=== PATIENT | female | born 1990 | race Caucasian/White ===

== ENCOUNTER 2018-06-01 09:48 | Outpatient (CLI) | payer MEDICAID ==
[2018-06-01 10:08] VITALS: BP 136/79; PULSE 95; RESP 16; TEMP 97.6
[2018-06-01 10:16] LABS: Basophils % (A) 0 %; Eosinophils # (A) 0.1 k/uL (0-0.7); Eosinophils % (A) 1 %; HCT 33.5 % (34.0-46.0); Lymphocytes # (A) 2.1 k/uL (1.0-4.8); Lymphocytes % (A) 23 %; MCH 28.9 pg (25.0-35.0); MCHC 32.9 g/dL (31.0-37.0); Mean Platelet Volume 7.4; Monocytes # (A) 0.5 k/uL (0-1.0); Monocytes % (A) 6 %; Neutrophils # (A) 6.4 k/uL (1.3-7.7); Neutrophils % (A) 69 %; Platelet Count 331 k/uL (150-450); RBC 3.81 m/uL (3.80-5.40); RDW 13.1 % (11.5-15.5); WBC 9.3 k/uL (3.8-10.6)
[2018-06-01 10:25] LABS: ALT 24 U/L (9-52); AST 16 U/L (14-36); Blood Urea Nitrogen 7 mg/dL (7-17); LDH 514 U/L (313-618); Uric Acid 3.5 mg/dL (3.7-7.4)
[2018-06-01 11:16] LABS: Appearance,Urine Cloudy (Clear); Bacteria,Urine Moderate /hpf; Bilirubin,Urine Negative (Negative); Blood,Urine Negative (Negative); Color,Urine Light Yellow; Glucose,Urine (UA) Negative (Negative); Ketones,Urine Negative (Negative); Leukocyte Esterase,Urine Large (Negative); Mucus,Urine Rare /hpf; Nitrite,Urine Negative (Negative); PH, Urine 5.5 (5.0-8.0); Protein,Urine Negative (Negative); RBC,Urine 6 /hpf (0-5); Specific Gravity,Urine 1.007 (1.001-1.035); Squamous Epithelial Cell,Urine 3 /hpf (0-4); Urobilinogen,Urine <2.0 mg/dL (<2.0); WBC,Urine 24 /hpf (0-5)
--- NOTE | 2018-06-01 14:27 | P.MSEPDOC ---
Presenting Problems - Arrival Data Date of Arrival on Unit: 06/01/18 Time of Arrival on Unit: 09:46 Mode of Transport: Ambulatory - Complaint OB-Reason for Admission/Chief Complaint: PIH Medical History - Information : 2 Para: 4 - Gestational Age Gestational Age by HUNTER (wks/days): 34 Weeks and 2 Days Review of Systems - Review of Systems Constitutional: No problems Breast: No problems ENT: No problems Cardiovascular: No problems Respiratory: No problems Gastrointestinal: No problems Genitourinary: No problems Musculoskeletal: No problems Neurological: No problems Skin: No problems Vital Signs - Temperature Temperature: 97.6 F Temperature Source: Temporal Artery Scan - Pulse Right Sitting Brachial Pulse Rate: 95 Pulse Assessment Method: Automatic Cuff - Respirations Respiratory Rate: 16 Oxygen Delivery Method: Room Air O2 Sat by Pulse Oximetry: 100 - Blood Pressure Right Arm Sitting Blood Pressure: 136/79 Blood Pressure Mean: 98 Blood Pressure Source: Automatic Cuff Medical Screen Scoring (Pre) - Cervical Exam Dilation: Exam Deferred Effacement: Exam Deferred Membranes: Intact - Uterine Contractions Frequency: N/A Duration: N/A Intensity: N/A - Maternal Vital Signs Maternal Temperature: N/A Maternal Blood Pressure: N/A Signs of Preeclampsia: Headache = 1 Maternal Respirations: N/A - Pain Assessment Pain Scale Used: Numeric (1 - 10) Pain Intensity: 0 - Maternal Trauma Maternal Trauma: N/A - Assessment Baseline FHR: 140 Heart Rate - NICHD Category: Category I (Normal) = 0 NST: Reactive Position: N/A, Non-vertex & not laboring = 3 Station: N/A - Total Score Total Score (Pre): 4 - Level of Risk Level of Risk: Low (0-5) Physician Notification (Pre) - Physician Notified Physician Notified Date: 06/01/18 Physician Notified Time: 11:30 Physician/Practitioner Notifed:: Dr sauceda Spoke With: Dr Sauceda New Order Received: Yes (d/c pt home at this time) - Notification Comment Comment: orders sent with patient Disposition - Disposition OB Disposition: Discharge to home Discharge Date: 06/01/18 Discharge Time: 11:40 I agree with the RN Medical Screening Exam: Yes Risk & Benefit of care provided described in d/c instruction: Yes Diagnosis: GESTATIONAL HTN W/O SIGNIFICANT PROTEINURIA, THIRD TRIMESTER
== END 2018-06-01 11:40 | disposition home or self-care (01) ==
LOC: FBPOP 09:48
PROVIDERS: ATTEND Obstetrics & Gynecology
DX: O13.3 Gestational [pregnancy-induced] hypertension without significant proteinuria, third trimester (principal); Z3A.34 34 weeks gestation of pregnancy
CPT/HCPCS: 59025; 81001; 82565; 82570; 83615; 84156; 84450; 84460; 84520; 84550; 85025; 99215

== ENCOUNTER 2018-06-02 21:40 | Outpatient (CLI) | payer BC, OTHER ==
[2018-06-02 22:42] LABS: Appearance,Urine Clear (Clear); Bilirubin,Urine Negative (Negative); Blood,Urine Negative (Negative); Color,Urine Light Yellow; Glucose,Urine (UA) Negative (Negative); Ketones,Urine Negative (Negative); Leukocyte Esterase,Urine Negative (Negative); Nitrite,Urine Negative (Negative); Protein,Urine Negative (Negative); Specific Gravity,Urine 1.004 (1.001-1.035); Urobilinogen,Urine <2.0 mg/dL (<2.0)
[2018-06-02 22:44] VITALS: PULSE 95; RESP 16; TEMP 97.4
[2018-06-02 23:42] VITALS: BP 130/70
--- NOTE | 2018-06-22 08:37 | P.MSEPDOC ---
Presenting Problems - Arrival Data Date of Arrival on Unit: 06/02/18 Time of Arrival on Unit: 21:40 Mode of Transport: Ambulatory - Complaint OB-Reason for Admission/Chief Complaint: Possible Onset of Labor Comment: 3-5 min since 1800 Medical History - Information : 1 Para: 0 Term: 0 : 0 Abortions: Spontaneous or Elective: 0 Number of Living Children: 0 - Gestational Age Gestational Age by HUNTER (wks/days): 34 Weeks and 3 Days Review of Systems - Review of Systems Constitutional: No problems Breast: No problems ENT: No problems Cardiovascular: No problems Respiratory: No problems Gastrointestinal: No problems Genitourinary: No problems Musculoskeletal: No problems Neurological: No problems Skin: No problems Vital Signs - Temperature Temperature: 97.4 F Temperature Source: Temporal Artery Scan - Pulse Right Brachial Pulse Rate: 95 Pulse Assessment Method: Automatic Cuff - Respirations Respiratory Rate: 16 Oxygen Delivery Method: Room Air O2 Sat by Pulse Oximetry: 98 - Blood Pressure Right Arm Blood Pressure: 130/70 Blood Pressure Mean: 90 Blood Pressure Source: Automatic Cuff Medical Screen Scoring (Pre) - Cervical Exam Dilation: 1-3 cm = 1 Membranes: Intact - Uterine Contractions Frequency: < 36 weeks = 6 Duration: > 40 seconds = 2 Intensity: N/A - Maternal Vital Signs Maternal Temperature: N/A Maternal Blood Pressure: N/A Signs of Preeclampsia: N/A Maternal Respirations: N/A - Maternal Trauma Maternal Trauma: N/A - Assessment Baseline FHR: 130 Heart Rate - NICHD Category: Category I (Normal) = 0 NST: Reactive Position: N/A Station: N/A - Total Score Total Score (Pre): 9 - Level of Risk Level of Risk: Medium (6-9) Physician Notification (Pre) - Physician Notified Physician Notified Date: 06/02/18 Physician Notified Time: 22:25 Spoke With: George Mcguire Order Received: Yes (ffn, ua recheck cervix) Medical Screen Scoring (Post) - Cervical Exam Dilation: 1-3 cm = 1 - Uterine Contractions Frequency: < 36 weeks = 6 Duration: > 40 seconds = 2 Intensity: N/A - Maternal Vital Signs Maternal Temperature: N/A Maternal Blood Pressure: N/A Signs of Preeclampsia: N/A Maternal Respirations: N/A - Assessment Heart Rate - NICHD Category: Category I (Normal) = 0 - Total Score Total Score (Post): 9 - Post Treatment Level of Risk Post Treatment Level of Risk: Medium (6-9) Physician Notification (Post) - Notification Comment Comment: pt continues to deny s/s of preeclampsia. 130 /70 mmHg. Dilatation: 1 cm /Effacement: Thick. (text) /Station: Ballottable (text) Disposition - Disposition OB Disposition: Discharge to home, Written follow up instructions reviewed Discharge Date: 06/02/18 Discharge Time: 11:35 I agree with the RN Medical Screening Exam: Yes Risk & Benefit of care provided described in d/c instruction: Yes Diagnosis: FALSE LABOR AT OR AFTER 37 COMPLETED WEEKS OF GESTATION
== END 2018-06-02 23:35 | disposition home or self-care (01) ==
LOC: FBPOP 21:40
PROVIDERS: ATTEND Obstetrics & Gynecology
DX: O47.1 False labor at or after 37 completed weeks of gestation (principal); Z3A.34 34 weeks gestation of pregnancy
CPT/HCPCS: 59025; 81003; 82731; 99213

== ENCOUNTER 2018-06-14 16:47 | Observation (INO) | payer BC, OTHER ==
[2018-06-14] MEDS ORDERED: ACETAMINOPHEN TAB 325 MG TAB PO PRN (17:50)
[2018-06-14 17:51] LABS: Basophils % (A) 0 %; Eosinophils # (A) 0.1 k/uL (0-0.7); Eosinophils % (A) 1 %; HCT 33.9 % (34.0-46.0); HGB 11.2 gm/dL (11.4-16.0); Lymphocytes # (A) 1.8 k/uL (1.0-4.8); Lymphocytes % (A) 21 %; MCH 28.6 pg (25.0-35.0); MCHC 32.9 g/dL (31.0-37.0); Mean Platelet Volume 7.8; Monocytes # (A) 0.4 k/uL (0-1.0); Monocytes % (A) 5 %; Neutrophils % (A) 72 %; Platelet Count 330 k/uL (150-450); RDW 13.7 % (11.5-15.5); WBC 8.3 k/uL (3.8-10.6)
--- NOTE | 2018-06-14 18:00 | P.HPOB ---
History of Present Illness H&P Date: 06/14/18 Chief Complaint: Headache and This patient is a pleasant 28-year-old 1 para 0 female estimated date of confinement 07/11/2018 estimated gestational age 36 weeks and 1 day who presents to labor and delivery with complaints of a headache. Patient's care is per Dr. Sauceda. Patient did have an echogenic focus on a ultrasound was seen by maternal medicine. This was felt to be isolated however the patient did decline genetic screening. care is significant for some headaches that she had right after Rajesh at that time had elevated blood pressures 120s to 130s over 90s. Patient was sent to labor and delivery and had a preeclampsia evaluation which was negative. Patient's most recent visit which is approximately 5 days ago she was 126/86 and stated her headaches had improved. Patient's blood pressure on admission here is 147/ 84 and 147/87. Patient denies other symptomatology at this time. Repeat blood pressures here however did show elevated to 167/89. Patient denies a history of hypertension. is a product of assisted reproduction. Review of Systems Constitutional: Reports as per HPI Genitourinary: Reports Menstruation: Reports amenorrhea Past Medical History Past Medical History: No Reported History History of Any Multi-Drug Resistant Organisms: None Reported Past Surgical History: Cholecystectomy, Tonsillectomy Past Anesthesia/Blood Transfusion Reactions: No Reported Reaction Past Psychological History: No Psychological Hx Reported Smoking Status: Never smoker Past Alcohol Use History: None Reported Past Drug Use History: None Reported Medications and Allergies Home Medications Medication Instructions Recorded Confirmed Type Pnv No.95/Ferrous Fum/Folic AC 1 tab PO DAILY 06/14/18 06/14/18 History [ Multivitamin Tablet] Allergies Allergy/AdvReac Type Severity Reaction Status Date / Time No Known Allergies Allergy Verified 06/14/18 16:56 Exam Intake and Output 06/14/18 06/14/18 06/14/18 06:59 14:59 22:59 Other: Weight 103.873 kg - OBG Physical Exam Cervix: Cervix in the office per Dr. Sauceda was 1 cm dilated Results blood work shows she is a positive, rubella immune, RPR nonreactive, hepatitis B is negative, HIV is nonreactive, group B strep was negative Assessment and Plan Assessment: This is a pleasant 28-year-old 1 para 0 female 36 and one sevenths weeks gestation who is admitted to labor and delivery for observation secondary to gestational hypertension. Patient is having a headache and has had a couple elevated blood pressures and therefore I feel is best to admit her for observation. I'm going to check preeclampsia labs, do continuous monitoring, beginning at 24 urine, and I ordered a complete ultrasound for tomorrow morning. Consider treatment if blood pressures greater than 160/100 persistently. Consider delivery at 37 weeks or earlier if evidence of preeclampsia. (1) 36 weeks gestation of Current Visit: Yes Status: Acute Code(s): Z3A.36 - 36 WEEKS GESTATION OF SNOMED Code(s): 02155687 (2) Gestational hypertension Current Visit: Yes Status: Acute Code(s): O13.9 - GESTATIONAL HTN W/O SIGNIFICANT PROTEINURIA, UNSP TRIMESTER SNOMED Code(s): 066857231
[2018-06-14 18:20] LABS: ALT 18 U/L (9-52); AST 20 U/L (14-36); Blood Urea Nitrogen 5 mg/dL (7-17); LDH 585 U/L (313-618); Uric Acid 4.9 mg/dL (3.7-7.4)
[2018-06-14 18:34] LABS: Appearance,Urine Clear (Clear); Bilirubin,Urine Negative (Negative); Blood,Urine Negative (Negative); Color,Urine Yellow; Glucose,Urine (UA) Negative (Negative); Ketones,Urine 1+ (Negative); Leukocyte Esterase,Urine Negative (Negative); Mucus,Urine Many /hpf; Nitrite,Urine Negative (Negative); PH, Urine 5.5 (5.0-8.0); Protein,Urine 1+ (Negative); RBC,Urine 1 /hpf (0-5); Specific Gravity,Urine 1.015 (1.001-1.035); Squamous Epithelial Cell,Urine 1 /hpf (0-4); Urobilinogen,Urine <2.0 mg/dL (<2.0); WBC,Urine 3 /hpf (0-5)
[2018-06-14 18:36] VITALS: BMI 40.2
[2018-06-14 18:57] LABS: Creatinine,Urine Random 196.1 mg/dL
[2018-06-15] MEDS ORDERED: ACETAMINOPHEN TAB 325 MG TAB ONE (02:45)
--- NOTE | 2018-06-15 08:00 | P.MSEPDOC ---
Presenting Problems - Arrival Data Date of Arrival on Unit: 06/14/18 Time of Arrival on Unit: 16:47 Mode of Transport: Ambulatory - Complaint OB-Reason for Admission/Chief Complaint: Headache Comment: headache and elevated bp's Medical History - Information : 1 Para: 0 Term: 0 : 0 Abortions: Spontaneous or Elective: 0 Number of Living Children: 0 - Gestational Age Gestational Age by HUNTER (wks/days): 35 Weeks and 6 Days Medical Screen Scoring (Pre) - Maternal Vital Signs Maternal Blood Pressure: Systolic >139 = 2 Signs of Preeclampsia: Headache = 1 Maternal Respirations: N/A - Assessment Baseline FHR: 140 Heart Rate - NICHD Category: Category I (Normal) = 0 NST: Reactive Position: N/A Station: N/A - Total Score Total Score (Pre): 3 - Level of Risk Level of Risk: Low (0-5) Physician Notification (Pre) - Physician Notified Physician Notified Date: 06/14/18 Physician/Practitioner Notifed:: Dr Marcos - Notification Comment Comment: Dr. Marcos was at bedside to assess and see pt, she was admitted for 24 hour obsv for elevated bp's and lab work and 24 hour urine Disposition - Disposition OB Disposition: Observe, LDRP Suite I agree with the RN Medical Screening Exam: Yes Risk & Benefit of care provided described in d/c instruction: Yes Diagnosis: GESTATIONAL HTN W/O SIGNIFICANT PROTEINURIA, THIRD TRIMESTER
[2018-06-15] MEDS ORDERED: ACETAMINOPHEN TAB 500 MG TAB PO PRN (08:29)
--- NOTE | 2018-06-15 08:29 | P.DS ---
Providers Date of admission: 06/14/18 17:38 Expected date of discharge: 06/15/18 Attending physician: Emily Sauceda Primary care physician: Emily Sauceda [place] [facility] Course: This is a 28-year-old female 1 para 0 at 36-2/7 weeks who was admitted by Dr. Marcos last night for elevated blood pressures and headache. Her lab work was normal other than she did have 1+ protein in her urine she also had 1+ ketones. Her headache has less than this morning but is still there. Her blood pressures initially on admission were elevated in the 140s over 80s and she did have an isolated blood pressure to in the 160s but this did come back down to normal. Her blood pressures through the night and this morning are normal. She only has a mild headache this morning. 24 hour urine is in progress. She did have a obstetrical ultrasound today that showed normal growth. She does have an appointment scheduled with me tomorrow morning in the office. I have advised her to move this to Wednesday and then we will discuss induction of labor after 37 weeks. She will be discharged this evening after her 24-hour urine is completed as long as her blood pressures stay within the normal range. She will be given instructions to return if symptoms worsen. Procedures: Obstetrical ultrasound 24 urine collection Patient Condition at Discharge: Stable Plan - Discharge Summary New Discharge Prescriptions: No Action Pnv No.95/Ferrous Fum/Folic AC [ Multivitamin Tablet] 1 tab PO DAILY Discharge Medication List Pnv No.95/Ferrous Fum/Folic AC [ Multivitamin Tablet] 1 tab PO DAILY 01/23 [History] Follow up Appointment(s)/Referral(s): Emily Sauceda DO [Primary Care Provider] - 06/17/18 Activity/Diet/Wound Care/Special Instructions: Modified bedrest. Off work. Discharge Disposition: HOME SELF-CARE
--- NOTE | 2018-06-15 08:52 | US ---
EXAMINATION TYPE: US OB >= 14 wk fetus DATE OF EXAM: 06/15/2018 COMPARISON: None CLINICAL HISTORY: Gestational hypertension TECHNIQUE: Transabdominal (TA) GESTATIONAL AGE / DATING Physician Established: (36 weeks/2 days) EDC: 07/11/2018 Dates by LMP: (36 weeks/2 days) EDC: 07/11/2018 Dates by First Scan: No previous this is first scan Dates by Current Scan: (36 weeks/5 days) EDC: 07/08/2018 SURVEY IUP: Single PLACENTA: Anterior PREVIA: No Previa [place]: 17.8 cm Normal CERVICAL LENGTH (transabdominal: norm > 3.0cm): 3.1 cm BIOMETRY PRESENTATION: Vertex LIE: Longitudinal BPD: 9.0 cm 36 weeks / 4 days HC: 33.2 cm 37 weeks / 6 days AC: 31.7 cm 35 weeks / 5 days FL: 7.3 cm 37 weeks / 2 days ESTIMATED WEIGHT IN GRAMS: 2938 grams ESTIMATED WEIGHT IN LBS/OZ: 6 lbs. 8 oz. WEIGHT PERCENTAGE BASED ON ESTABLISHED DATES: 56.8% HC/AC: 1.05 Normal FL/AC: 22.97 Normal HEART RATE: 136 bpm RHYTHM: Normal Live IUP, measurements consistent with dates. IMPRESSION: Single live intrauterine with a sonographic age of 36 weeks and 5 days and estimated date o f delivery of 07/08/2018, concordant with menstrual age. Amniotic fluid index, cervical length, and fet al heart rate are within normal limits.
== END 2018-06-15 17:44 | disposition home or self-care (01) ==
LOC: FBPOP 16:47 → 4FBP 17:38 → INTOOBSV 17:38
PROVIDERS: ADMIT Obstetrics & Gynecology; ATTEND Obstetrics & Gynecology
DX: O13.3 Gestational [pregnancy-induced] hypertension without significant proteinuria, third trimester (principal); Z3A.36 36 weeks gestation of pregnancy; Z90.49 Acquired absence of other specified parts of digestive tract
CPT/HCPCS: 59025; 99215; 82570; 84156 ×2; 81050; 82565; 83615; 84450; 84460; 84520; 84550; 85025; 81001; 76805; G0378 ×2

== ENCOUNTER 2018-06-21 05:59 | Inpatient (IN) | payer BC, OTHER ==
--- NOTE | 2018-06-20 20:53 | P.HPOB ---
History of Present Illness H&P Date: 06/20/18 Chief Complaint: Gestational hypertension This is a 28-year-old female 1 para 0 with an estimated date of confinement of 07/11/2018, estimated gestational age of 37 and one sevenths weeks, who presents to labor and delivery for induction of labor secondary to gestational hypertension. She was hospitalized last week and labs were obtained. She did not have preeclampsia and her 24 urine level was approximate 400 mg of protein in 24 hours. Her blood pressures were stable on bedrest, however she did have several blood pressures that were above 140 and above 90 more than 4 hours apart. At her last visit in the office on June 17, her blood pressure was 124/90. She did have a headache on the days that she was admitted last week however this has resolved. She denies any blurry vision or epigastric pain. She does complain of irregular contractions. Obstetrical ultrasound performed on June 15 showed an estimated weight of 6 lbs. 8 oz. or 56 percentile and [place] of 17.8. labs: Hepatitis B surface antigen-negative RPR-nonreactive Rubella-immune Blood type-A+ Antibody screen-negative HIV-nonreactive Hemoglobin-13.1 Toxoplasma-negative Random glucose-89 Obstetrical ultrasound-left ventricle EIF was noted on 20 week ultrasound. She was seen by maternal medicine and this was confirmed there, but resolved by 32 weeks. 1 hour Glucola-136, 3 hour Glucola-within normal limits Group B streptococcus-negative Obstetrical history: . Gynecologic history: No history of STDs. Social history: She is to her female partner. 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 Review of Systems Constitutional: Denies chills, Denies fever Eyes: denies blurred vision, denies pain Ears, nose, mouth and throat: Denies headache, Denies sore throat Cardiovascular: Denies chest pain, Denies shortness of breath Respiratory: Denies cough Gastrointestinal: Reports abdominal pain (Irregular contractions) Genitourinary: Reports pelvic pain, Reports Musculoskeletal: Reports low back pain Integumentary: Denies pruritus, Denies rash Neurological: Denies numbness, Denies weakness Past Medical History Past Medical History: No Reported History History of Any Multi-Drug Resistant Organisms: None Reported Past Surgical History: Cholecystectomy, Tonsillectomy Past Anesthesia/Blood Transfusion Reactions: No Reported Reaction Past Psychological History: Anxiety Smoking Status: Never smoker Past Alcohol Use History: None Reported Past Drug Use History: None Reported - Past Family History Mother Family Medical History: Hypertension, Thyroid Disorder Medications and Allergies Home Medications Medication Instructions Recorded Confirmed Type Pnv No.95/Ferrous Fum/Folic AC 1 tab PO DAILY 06/14/18 06/14/18 History [ Multivitamin Tablet] Allergies Allergy/AdvReac Type Severity Reaction Status Date / Time No Known Allergies Allergy Verified 06/14/18 16:56 Exam Osteopathic Statement: *. No significant issues noted on an osteopathic structural exam other than those noted in the History and Physical/Consult. HEENT: Within normal limits Heart: Regular rate and rhythm Lungs: Clear to auscultation bilaterally Abdomen: Cervix: 1-1/2 cm/60%/-2 heart tones: 140s by Doppler Extremities: Negative Homans Assessment and Plan (1) 37 weeks gestation of Status: Acute Code(s): Z3A.37 - 37 WEEKS GESTATION OF SNOMED Code( s): 58177250 (2) Gestational hypertension Status: Acute Code(s): O13.9 - GESTATIONAL HTN W/O SIGNIFICANT PROTEINURIA, UNSP TRIMESTER SNOMED Code(s): 270189009 Plan: Proceed with oxytocin induction of labor. Careful monitoring of blood pressures. Expectant management.
[2018-06-21] MEDS ORDERED: METHYLERGONOVINE 0.2 MG/ML 1 ML AMP IM PRN (06:04)
[2018-06-21] MEDS ORDERED: LIDOCAINE 0.5% (PF) 5 MG/ML (50 ML SDV) SQ PRN (06:04)
[2018-06-21] MEDS ORDERED: OXYTOCIN 10 UNIT/ML 1 ML VIAL IM PRN (06:04)
[2018-06-21] MEDS ORDERED: CARBOPROST TROMETHAMINE 250 MCG/ML 1 ML AMP IM PRN (06:04)
[2018-06-21] MEDS ORDERED: OXYTOCIN 20 UNITS/1000 ML NS 1,000 ML IV SCH ×2 (06:04→19:34)
[2018-06-21] MEDS ORDERED: LIDOCAINE 1% 20 ML VIAL (10MG/ML) FOR IV START INTRADERMA PRN (06:04)
[2018-06-21] MEDS ORDERED: TERBUTALINE 1 MG/ML VIAL SQ PRN (06:04)
[2018-06-21 06:26] VITALS: BMI 42.2
[2018-06-21] MEDS: LACTATED RINGERS 1,000 ML IV SCH ×3 (06:27→18:41)
[2018-06-21 06:29] LABS: Basophils % (A) 0 %; Eosinophils # (A) 0.1 k/uL (0-0.7); Eosinophils % (A) 1 %; HCT 32.5 % (34.0-46.0); HGB 10.7 gm/dL (11.4-16.0); Lymphocytes # (A) 2.8 k/uL (1.0-4.8); Lymphocytes % (A) 32 %; MCH 28.2 pg (25.0-35.0); MCHC 32.9 g/dL (31.0-37.0); MCV 85.8 fL (80.0-100.0); Mean Platelet Volume 8.1; Monocytes # (A) 0.4 k/uL (0-1.0); Monocytes % (A) 5 %; Neutrophils # (A) 5.2 k/uL (1.3-7.7); Neutrophils % (A) 60 %; Platelet Count 278 k/uL (150-450); RBC 3.78 m/uL (3.80-5.40); RDW 13.8 % (11.5-15.5); WBC 8.6 k/uL (3.8-10.6)
[2018-06-21 07:34] LABS: Glucose,Urine (UA) Negative (Negative); Ketones,Urine Negative (Negative); Protein,Urine Trace (Negative)
[2018-06-21] MEDS ORDERED: BUTORPHANOL 1 MG/ML 1 ML VIAL IV PRN (08:40)
[2018-06-21] MEDS ORDERED: SODIUM CHLORIDE 0.9% 100 ML BAG ONE (17:07)
[2018-06-21] MEDS ORDERED: ROPIVACAINE 5MG/ML 20ML VIAL ONE (17:07)
[2018-06-21] MEDS ORDERED: fentaNYL (PF) 50 MCG/ML 5 ML AMP ONE (17:07)
--- NOTE | 2018-06-21 19:28 | P.PROBDLV ---
Vaginal Delivery Note - . Vaginal Delivery Note: The patient progressed to complete dilation after oxytocin induction of labor and artificial rupture membranes with clear fluid noted. She did receive epidural anesthesia. Once reaching complete, she began pushing. 's head came to a crown. With one further push, the infant's head delivered across the perineum followed by the anterior shoulder and the remainder the body. was placed on mother's abdomen and nose and mouth were bulb suctioned. Cord was cut and cut. was taken to warmer for evaluation. A viable female infant was noted with scores of 9 at 1 minute and 9 at 5 minutes and infant weight of 6 lbs. 10 oz. Placenta delivered shortly thereafter, intact, with a three-vessel cord. Uterus contracted well after oxytocin was given and uterine massage was carried out. Inspection of the perineum revealed a second- degree perineal laceration. This was anesthetized with 1% lidocaine and then sutured with 3-0 and 2-0 Vicryl suture in the usual multilayer fashion. There is also noted to be a left periurethral laceration. This area was anesthetized with 1% lidocaine and then sutured with 3-0 Vicryl suture in a running locked fashion. Estimated blood loss is approximately 200 mL's. Both mother and infant are in stable condition.
[2018-06-21] MEDS ORDERED: LANOLIN CREAM 5 GM TUBE TOPICAL PRN (19:34)
[2018-06-21] MEDS ORDERED: SIMETHICONE 80 MG CHEWABLE PO PRN (19:34)
[2018-06-21] MEDS ORDERED: ZOLPIDEM 5 MG TAB PO PRN (19:34)
[2018-06-21] MEDS ORDERED: BENZOCAINE/MENTHOL SPRAY 1 GM/SPRAY AEROSOL TOPICAL PRN (19:34)
[2018-06-21] MEDS ORDERED: WITCH HAZEL 1 EACH MED..PAD TOPICAL PRN (19:34)
[2018-06-21] MEDS ORDERED: ACETAMINOPHEN TAB 325 MG TAB PO PRN (19:34)
[2018-06-21] MEDS ORDERED: diphenhydrAMINE 25 MG CAP PO PRN (19:34)
[2018-06-21] MEDS ORDERED: diphenhydrAMINE 50 MG CAP PO PRN (19:34)
[2018-06-21] MEDS ORDERED: diphenhydrAMINE 50 MG/ML 1 ML VIAL IVP PRN ×2 (19:34)
[2018-06-21] MEDS ORDERED: HYDROCORTISONE 2.5% RECTAL CREAM 30 GM TUBE RECTAL PRN (19:34)
[2018-06-21] MEDS: IBUPROFEN 600 MG TAB PO PRN (20:29)
[2018-06-21] MEDS: SENNOSIDES-DOCUSATE SODIUM 1 EACH TAB PO SCH (20:29)
[2018-06-22 07:23] LABS: Basophils % (A) 0 %; Eosinophils % (A) 0 %; HCT 27.5 % (34.0-46.0); HGB 9.3 gm/dL (11.4-16.0); Lymphocytes # (A) 2.5 k/uL (1.0-4.8); Lymphocytes % (A) 23 %; MCH 29.5 pg (25.0-35.0); MCHC 33.8 g/dL (31.0-37.0); MCV 87.2 fL (80.0-100.0); Monocytes # (A) 0.6 k/uL (0-1.0); Monocytes % (A) 6 %; Neutrophils # (A) 7.5 k/uL (1.3-7.7); Neutrophils % (A) 69 %; Platelet Count 222 k/uL (150-450); RBC 3.16 m/uL (3.80-5.40); WBC 10.8 k/uL (3.8-10.6)
[2018-06-22 07:55] VITALS: RESP 14
[2018-06-22] MEDS: SENNOSIDES-DOCUSATE SODIUM 1 EACH TAB PO SCH (07:59)
[2018-06-22] MEDS: IBUPROFEN 600 MG TAB PO PRN ×2 (07:59→16:48)
--- NOTE | 2018-06-22 08:58 | P.DS ---
Providers Date of admission: 06/21/18 05:59 Expected date of discharge: 06/22/18 Attending physician: Emily Sauceda Primary care physician: Stated None - Discharge Diagnosis(es) (1) 37 weeks gestation of Current Visit: No Status: Acute (2) Gestational hypertension Current Visit: No Status: Acute Hospital Course: This is a 28-year-old 1 para 0 at 37 and one sevenths weeks who presented for induction of labor secondary to gestational hypertension. She delivered vaginally a viable female infant on 06/21/2018 with scores of 9 at 1 minute and 9 at 5 minutes and weight of 6 lbs. 10 oz. Her course has been essentially uncomplicated. She denies any headaches or blurry vision. Her blood pressures have normalized this morning. Pain is fairly well controlled with ibuprofen. She is bottle feeding. Lochia is decreasing. Vital signs are stable. Abdomen is soft with fundus firm and nontender. Extremities show negative Homans. Impression is status post vaginal delivery day #1, gestational hypertension-currently normal blood pressures. Plan is to discharge home later today. She is advised to continue taking her blood pressures at home and she will see me in the office in 1 week for a blood pressure pressure check. Routine instructions are given. She is also advised to call the office if she has any further questions or concerns prior to her appointment time. She will also schedule a 6 week visit. Procedures: Oxytocin induction of labor Spontaneous vaginal delivery of a viable female infant on 06/21/2018 Patient Condition at Discharge: Stable Plan - Discharge Summary New Discharge Prescriptions: New Ibuprofen [Motrin] 600 mg PO Q6HR PRN #60 tab PRN Reason: Mild Pain Or Fever >= 100.5 No Action Pnv No.95/Ferrous Fum/Folic AC [ Multivitamin Tablet] 1 tab PO DAILY Discharge Medication List Pnv No.95/Ferrous Fum/Folic AC [ Multivitamin Tablet] 1 tab PO DAILY 01/23 [History] Ibuprofen [Motrin] 600 mg PO Q6HR PRN #60 tab 06/22/18 [Rx] Follow up Appointment(s)/Referral(s): Emily Sauceda DO [Doctor of Osteopathic Medicine] - 1 Week Activity/Diet/Wound Care/Special Instructions: Instructions 1. Do not begin any exercise program for 3 weeks. 2. Do not resume sexual relations for 3 weeks or longer if uncomfortable. 3. You may take tub baths or showers at any time. 4. You may use tampons if desired after 3 weeks. 5. Keep the area of episiotomy (stitches) clean and dry. 6. If you are not nursing, wear a good fitting, supportive bra during the day and limit fluid intake for at least 1 week to prevent breast engorgement. 7. Call the office, [phone], within the next week to make appointment for your 6 week checkup if it has not already been made. 8. Report any of the following occurrences to the doctor promptly: a. Heavy, excessive bleeding b. Chills, fever c. Burning or frequency of urination d. Pain or redness and breasts if nursing e. Increasing pain or swelling in episiotomy (stitches). In addition to the above instructions, the following additional should be followed: 1. No heavy lifting or straining (exercising) until after 6 week checkup. 2. Keep abdominal incision clean and dry: You may wear a dressing if more comfortable. 3. Make office appointment for 10 days after going home or as instructed by her doctor. Discharge Disposition: HOME SELF-CARE
[2018-06-22 17:21] VITALS: BP 118/57; PULSE 95; TEMP 97.7
== END 2018-06-22 19:58 | disposition home or self-care (01) | DRG 807 ==
LOC: 4FBP 05:59
PROVIDERS: ADMIT Obstetrics & Gynecology; ATTEND Obstetrics & Gynecology
PROC: 10E0XZZ Delivery of Products of Conception, External Approach (ICD-10-PCS; principal; 2018-06-21)
PROC: 0KQM0ZZ Repair Perineum Muscle, Open Approach (ICD-10-PCS; 2018-06-21)
PROC: 00HU33Z Insertion of Infusion Device into Spinal Canal, Percutaneous Approach (ICD-10-PCS; 2018-06-21)
PROC: 3E0R3BZ Introduction of Anesthetic Agent into Spinal Canal, Percutaneous Approach (ICD-10-PCS; 2018-06-21)
PROC: 10907ZC Drainage of Amniotic Fluid, Therapeutic from Products of Conception, Via Natural or Artificial Opening (ICD-10-PCS; 2018-06-21)
PROC: 3E033VJ Introduction of Other Hormone into Peripheral Vein, Percutaneous Approach (ICD-10-PCS; 2018-06-21)
DX: O13.4 Gestational [pregnancy-induced] hypertension without significant proteinuria, complicating childbirth (principal); Z37.0 Single live birth; O99.344 Other mental disorders complicating childbirth; F41.9 Anxiety disorder, unspecified; O70.1 Second degree perineal laceration during delivery; O71.82 Other specified trauma to perineum and vulva; Z3A.37 37 weeks gestation of pregnancy; Z90.49 Acquired absence of other specified parts of digestive tract; Z83.49 Family history of other endocrine, nutritional and metabolic diseases; Z82.49 Family history of ischemic heart disease and other diseases of the circulatory system
CPT/HCPCS: 81003; 85025; 86850; 86900; 86901; 88307

== ENCOUNTER → 2018-08-25 | Outpatient (CLI) | payer BC, OTHER ==
--- NOTE | 2018-08-25 10:49 | XR ---
EXAMINATION TYPE: XR chest 2V DATE OF EXAM: 08/25/2018 COMPARISON: 08/28/2015 HISTORY: Tuberculosis screening TECHNIQUE: Frontal and lateral views of the chest are obtained. FINDINGS: There is no focal air space opacity, pleural effusion, or pneumothorax seen. The cardiac silhouette size is within normal limits. The osseous structures are intact. Cholecystectomy clips a re seen in the right upper quadrant. IMPRESSION: No acute cardiopulmonary process.
== END | disposition home or self-care (01) ==
LOC: RADMRIMAIN 09:13
PROVIDERS: ATTEND Family Medicine
DX: Z11.1 Encounter for screening for respiratory tuberculosis (principal)
CPT/HCPCS: 71046

== ENCOUNTER → 2019-08-18 | Outpatient (CLI) | payer BC | END | disposition home or self-care (01) | LOC: LABWHC1 10:57 | PROVIDERS: ATTEND Obstetrics & Gynecology | DX: O03.9 Complete or unspecified spontaneous abortion without complication (principal) | CPT/HCPCS: 36415; 84702 ==

== ENCOUNTER → 2019-08-21 | Outpatient (CLI) | payer BC | END | disposition home or self-care (01) | DX: O03.9 Complete or unspecified spontaneous abortion without complication (principal) | CPT/HCPCS: 36415; 84702 ==

== ENCOUNTER → 2019-08-28 | Outpatient (CLI) | payer BC | END | disposition home or self-care (01) | LOC: LABWHC1 08:33 | PROVIDERS: ATTEND Obstetrics & Gynecology | DX: O03.9 Complete or unspecified spontaneous abortion without complication (principal) | CPT/HCPCS: 36415; 84702 ==

== ENCOUNTER 2020-03-27 12:13 | Outpatient (CLI) | payer OTHER ==
[2020-03-27 14:14] VITALS: BP 136/67; PULSE 96; RESP 17; TEMP 97.5
--- NOTE | 2020-03-30 09:26 | P.MSEPDOC ---
Presenting Problems - Arrival Data Date of Arrival on Unit: 03/27/20 Time of Arrival on Unit: 12:13 Mode of Transport: Ambulatory - Complaint OB-Reason for Admission/Chief Complaint: NST Comment: pt here from office for NST for twin gestation, pt reports increased blood. pressures during , denies weir/blurred vision/epigastric pain, abd soft and non. tender, denies lof/vb, denies contractions Medical History - Information : 2 Para: 1 Term: 1 : 0 Abortions: Spontaneous or Elective: 0 Number of Living Children: 1 - Gestational Age Gestational Age by HUNTER (wks/days): 31 Weeks and 6 Days - History Comment: pt states she was started on labetalol this week for increased bps Review of Systems - Review of Systems Constitutional: No problems Breast: No problems ENT: No problems Cardiovascular: No problems Respiratory: No problems Gastrointestinal: No problems Genitourinary: No problems Musculoskeletal: No problems Neurological: No problems Skin: No problems Vital Signs - Temperature Temperature: 97.5 F Temperature Source: Temporal Artery Scan - Pulse Right Brachial Pulse Rate: 96 Pulse Assessment Method: Automatic Cuff - Respirations Respiratory Rate: 17 Oxygen Delivery Method: Room Air - Blood Pressure Right Arm Blood Pressure: 136/67 Blood Pressure Mean: 90 Blood Pressure Source: Automatic Cuff Medical Screen Scoring (Pre) - Cervical Exam Dilation: Exam Deferred Effacement: Exam Deferred Membranes: Intact - Uterine Contractions Frequency: > 5 minutes apart = 1 Duration: > 40 seconds = 2 Intensity: N/A - Maternal Vital Signs Maternal Temperature: N/A Maternal Blood Pressure: N/A Signs of Preeclampsia: N/A Maternal Respirations: N/A - Maternal Trauma Maternal Trauma: N/A - Assessment - Baby A Baseline FHR: 135 Heart Rate - NICHD Category: Category I (Normal) = 0 NST: Reactive Position: N/A Station: N/A - Assessment - Baby B Baseline FHR: 145 Heart Rate - NICHD Category: Category I (Normal) = 0 NST: Reactive Position: N/A Station: N/A - Total Score - Baby A Total Score - Baby A: 3 - Total Score - Baby B Total Score - Baby B: 3 - Total Score - Baby C Total Score - Baby C: 3 - Level of Risk - Baby A Level of Risk - Baby A: Low (0-5) - Level of Risk - Baby B Level of Risk - Baby B: Low (0-5) - Level of Risk - Baby C Level of Risk - Baby C: Low (0-5) Physician Notification (Pre) - Physician Notified Physician Notified Date: 03/27/20 Physician Notified Time: 14:00 New Order Received: Yes (dc home) - Notification Comment Comment: pt ok to dc home at this time, pt has appt 04-03 Disposition - Disposition OB Disposition: Discharge to home, Written follow up instructions reviewed Discharge Date: 03/27/20 Discharge Time: 14:10 I agree with the RN Medical Screening Exam: Yes Risk & Benefit of care provided described in d/c instruction: Yes Diagnosis: RELATED CONDITIONS, UNSPECIFIED, THIRD TRIMESTER
== END 2020-03-27 14:10 | disposition home or self-care (01) ==
LOC: FBPOP 12:13
PROVIDERS: ATTEND Obstetrics & Gynecology Obstetrics
DX: O26.93 Pregnancy related conditions, unspecified, third trimester (principal); Z3A.31 31 weeks gestation of pregnancy
CPT/HCPCS: 59025

== ENCOUNTER 2020-04-02 11:01 | Outpatient (CLI) | payer OTHER ==
[2020-04-02] MEDS ORDERED: BETAMET ACET-BETAMETH SOD PHOS 6 MG/ML MDV IM SCH (11:15)
== END 2020-04-02 11:20 | disposition home or self-care (01) ==
LOC: FBPOP 11:01
PROVIDERS: ATTEND Obstetrics & Gynecology Obstetrics
DX: O30.009 Twin pregnancy, unspecified number of placenta and unspecified number of amniotic sacs, unspecified trimester (principal); O13.9 Gestational [pregnancy-induced] hypertension without significant proteinuria, unspecified trimester; Z3A.00 Weeks of gestation of pregnancy not specified
CPT/HCPCS: 96372; J0702

== ENCOUNTER 2020-04-03 11:06 | Outpatient (CLI) | payer OTHER ==
[2020-04-03] MEDS ORDERED: BETAMET ACET-BETAMETH SOD PHOS 6 MG/ML MDV IM ONE (12:00)
== END 2020-04-03 11:22 | disposition home or self-care (01) ==
LOC: FBPOP 11:06
PROVIDERS: ATTEND Obstetrics & Gynecology Obstetrics
DX: O30.009 Twin pregnancy, unspecified number of placenta and unspecified number of amniotic sacs, unspecified trimester (principal); O13.9 Gestational [pregnancy-induced] hypertension without significant proteinuria, unspecified trimester; Z3A.00 Weeks of gestation of pregnancy not specified
CPT/HCPCS: 96372; J0702

== ENCOUNTER 2020-04-24 16:25 | Inpatient (IN) | payer OTHER ==
[2020-04-24] MEDS ORDERED: LACTATED RINGERS 1,000 ML IV ONE (17:40)
[2020-04-24] MEDS ORDERED: CITRIC ACID-SODIUM CITRATE 15 ML CUP PO ONE (17:40)
[2020-04-24] MEDS ORDERED: HYDROcodone/APAP 5-325MG 1 EACH TAB PO PRN (17:58)
[2020-04-24] MEDS ORDERED: diphenhydrAMINE 50 MG/ML 1 ML VIAL IVP PRN ×2 (17:58)
[2020-04-24] MEDS ORDERED: diphenhydrAMINE 25 MG CAP PO PRN (17:58)
[2020-04-24] MEDS ORDERED: METOCLOPRAMIDE 5 MG/ML 2 ML VIAL IVP PRN (17:58)
[2020-04-24] MEDS ORDERED: ONDANSETRON 4 MG/2 ML VIAL IVP PRN (17:58)
[2020-04-24] MEDS ORDERED: NALOXONE 0.4 MG/ML 1 ML VIAL IV PRN (17:58)
[2020-04-24] MEDS ORDERED: diphenhydrAMINE 50 MG CAP PO PRN (17:58)
[2020-04-24] MEDS ORDERED: SIMETHICONE 80 MG CHEWABLE PO PRN (17:58)
[2020-04-24] MEDS ORDERED: ZOLPIDEM 5 MG TAB PO PRN (17:58)
--- NOTE | 2020-04-24 17:58 | P.HPOB ---
History of Present Illness H&P Date: 04/24/20 Chief Complaint: twin gestation 35 6/7 weeks, preeclampsia This is a 29-year-old 3 para 1011 at 35-6/7 weeks with known twin gestation, di/di. Patient has been receiving routine care with known gestational hypertension and was placed on labetalol 200 mg twice daily at 32 weeks. Patient has had labile blood pressures since that time. Patient presented to the office today with complaints of headache overnight and all day, blood pressures were noted to be 140s over 90s. Patient was sent over to the hospital for monitoring blood pressures ranging 140s to 160s over 80s to 100. Patient has noted good movement 2. Babies were noted to be in a breech/ breech presentation. In addition patient did receive betamethasone approximately one week ago. On labs patient has a blood type of A+, rubella status immune, RPR nonreactive, hepatitis B surface is negative, HIV negative she has had multiple workups for preeclampsia with normal labs being obtained yesterday, protein creatinine ratio being 0.1. Review of Systems Constitutional: Denies chills, Denies fatigue, Denies fever Ears, nose, mouth and throat: Reports headache Cardiovascular: Reports leg edema Gastrointestinal: Denies nausea, Denies vomiting Genitourinary: Reports Past Medical History Past Medical History: No Reported History Additional Past Medical History / Comment(s): Gestational diabetes History of Any Multi-Drug Resistant Organisms: None Reported Past Surgical History: Adenoidectomy, Cholecystectomy, Tonsillectomy Past Anesthesia/Blood Transfusion Reactions: No Reported Reaction Smoking Status: Never smoker - Past Family History Mother Family Medical History: Hypertension, Thyroid Disorder Medications and Allergies Home Medications Medication Instructions Recorded Confirmed Type Pnv No.95/Ferrous Fum/Folic AC 1 tab PO DAILY 06/14/18 04/24/20 History [ Multivitamin Tablet] Aspirin [Adult Low Dose Aspirin EC] 81 mg PO DAILY 03/12/20 04/24/20 History Sertraline HCl [Zoloft] 100 mg PO DAILY 03/12/20 04/24/20 History Labetalol HCl 100 mg PO TID 04/01/20 04/24/20 History Ferrous Sulfate [Iron] 325 mg PO DAILY 04/23/20 04/24/20 History Allergies Allergy/AdvReac Type Severity Reaction Status Date / Time No Known Allergies Allergy Verified 04/24/20 16:59 Exam Osteopathic Statement: *. No significant issues noted on an osteopathic structural exam other than those noted in the History and Physical/Consult. 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 a well-nourished well-developed female in no obvious distress, breathing is noted to be nonlabored, heart has a regular rate and rhythm, abdomen is gravid and appropriate given twin gestation, heart tones returned be category 12, she is alta every 3 minutes, cervical exam is deferred Assessment and Plan (1) 35 to 36 weeks gestation of Current Visit: Yes Status: Acute Code(s): [id number] - SNOMED Code(s): 734689423 (2) Preeclampsia Current Visit: Yes Status: Acute Code(s): O14.90 - UNSPECIFIED PRE- ECLAMPSIA, UNSPECIFIED TRIMESTER SNOMED Code(s): 926457301 (3) GDM, class A1 Current Visit: Yes Status: Acute Code(s): O24.410 - GESTATIONAL DIABETES MELLITUS IN , DIET CONTROLLED SNOMED Code(s): 14874124 (4) Twin Current Visit: Yes Status: Acute Code(s): O30.009 - TWIN , UNSP NUM PLCNTA & AMNIO SACS, UNSP TRIMESTER SNOMED Code(s): 45818970 Plan: This 29-year-old 011 at 35-6/7 weeks presented to labor and delivery from the office with noted elevated blood pressures. Patient also states she has had a headache for most of the evening and day. Patient has taken Tylenol 2 with minimal relief. Patient is currently being monitored for twin gestation and gestational hypertension and is taking labetalol 200 mg twice daily. Patient's blood pressures have been elevated today 140s to 160s over 80s to 100. Given this patient has elevated blood pressures and headache will plan primary given 's presentation and preeclampsia.
[2020-04-24] MEDS ORDERED: ceFAZolin 3 GM in SODIUM CHLORIDE 0.9% 100 ML IVPB ONE (18:00)
[2020-04-24] MEDS ORDERED: OXYTOCIN 20 UNITS/1000 ML NS 1,000 ML IV SCH (18:00)
[2020-04-24 18:27] LABS: INR 0.9 (<1.2); Partial Thromboplastin Time 23.2 sec (22.0-30.0); Prothrombin Time 9.3 sec (9.0-12.0)
[2020-04-24] MEDS ORDERED: OXYTOCIN 10 UNIT/ML 1 ML VIAL ONE (18:30)
[2020-04-24] MEDS ORDERED: ACETAMINOPHEN IV (For NPO) 1,000 MG in EMPTY BAG 1 BAG IVPB ONE (18:30)
[2020-04-24] MEDS ORDERED: MORPHINE SULFATE (PF) 0.3 MG/0.3 ML SYR ONE (18:30)
[2020-04-24] MEDS ORDERED: ONDANSETRON 4 MG/2 ML VIAL ONE (18:30)
[2020-04-24 18:43] LABS: Anisocytosis Slight; HCT 32.6 % (34.0-46.0); HGB 10.5 gm/dL (11.4-16.0); Hypochromasia Slight; MCH 27.2 pg (25.0-35.0); MCHC 32.3 g/dL (31.0-37.0); MCV 84.4 fL (80.0-100.0); Mean Platelet Volume 9.7; Platelet Count 226 k/uL (150-450); RBC 3.87 m/uL (3.80-5.40); RDW 19.8 % (11.5-15.5); WBC 6.2 k/uL (3.8-10.6)
--- NOTE | 2020-04-24 19:27 | P.OP ---
Date of Procedure: 04/24/20 Preoperative Diagnosis: Twin Gestation at 35 and 6/sevenths weeks, preeclampsia Postoperative Diagnosis: Same Procedure(s) Performed: Primary low transverse section Anesthesia: spinal Surgeon: Tori Veras Sheet Metal Worker Apprentice #1: Tiffanie Calderón Estimated Blood Loss (ml): 760 IV fluids (ml): 1,000 Urine output (ml): 200 Pathology: other (Uterine placenta) Condition: stable Disposition: observation Indications for Procedure: This 29-year-old 011 at 85-6/7 weeks presented with elevated blood pressure and headache. Patient's blood pressures noted anywhere from 140-170 over 80s to 100s. Given her headache over the last 24 hours without relief with Tylenol diagnosis of preeclampsia was made. Patient was taken for primary C- section secondary to breech breech presentation. Operative Findings: Normal uterus tubes and ovaries were appreciated a boy delivered at 1849, weight of 5 lbs. 11 oz. with Apgars of 9 and 9 at one and 5 minutes respectively, B girl delivered at 1851, weight of 5 lbs. 2 oz. and Apgars of 8 and 9 at one and 5 minutes respectively. Description of Procedure: Patient was taken back to the operating suite where spinal anesthesia was found be adequate. She was prepped and draped in the normal sterile fashion in dorsal supine position. A Pfannenstiel skin incision was made with the scalpel and carried through the underlying layer of fascia. The fascia was then incised in the midline and extended laterally. Superior aspect of the fascial incision was then grasped yolanda clamps, elevated and underlying rectus muscles dissected off sharply. Attention was then turned to the inferior aspect the fascial incision was grasped with Yolanda clamps, elevated and underlying rectus muscle was dissected off sharply. The rectus muscles were in the midline the peritoneum was identified and entered. The bladder blade was then inserted into the pelvis. The vesicouterine peritoneum was identified and a bladder flap was created using sharp and blunt dissection. Hysterotomy incision was then made with the scalpel amniotomy was performed and clear fluid was obtained. a baby boy delivered in a breech presentation in the usual fashion. The cord was doubly clamped and cut and handed off to awaiting RN, infant B's amniotic fluid was ruptured clear fluid noted and delivered in a breech presentation umbo cord was doubly clamped and cut and handed off to awaiting RN. The placenta was then delivered manually and the uterus was cleared of all clots and debris. Uterus was then delivered from the abdomen. Hysterotomy incision was then closed with 0 Vicryl in a running locked fashion. A second layer of suture was used for hemostasis. Small amount of bleeding was noted on the right-hand side of the hysterotomy incision therefore a [id number] suture was used to obtain hemostasis. Uterus then returned to the abdomen. The gutters were cleared of all clots and debris. Hysterotomy incision was inspected hemostasis was appreciated. The peritoneum was then loosely reapproximated. The fascia was then closed with 0 Vicryl in a running fashion from one lateral edge the midline and the other lateral edge the midline. The subcutaneous tissue was then irrigated and found to be hemostatic. The subcutaneous tissue was then closed with 3-0 Vicryl in a running fashion. The skin was then closed with 4-0 Vicryl in a subcuticular fashion. Steri-Strips and sterile dressings were applied. All counts were noted be correct 2. Patient and infant tolerated delivery well and are resting comfortably
[2020-04-24] MEDS ORDERED: MAGNESIUM SULFATE-WATER PMX 4 GM in WATER FOR INJECTION 1 100ML.BAG IVPB ONE (19:30)
[2020-04-24 19:36] LABS: Lymphocytes # (M) 2.17 k/uL (1.0-4.8); Monocytes # (M) 0.31 k/uL (0-1.0); Neutrophils # (M) 3.72 k/uL (1.3-7.7); Neutrophils % (M) 60 %; Nucleated Red Blood Cells 0 /100 WBC (0-0); Total Cells Counted 100
[2020-04-24 19:37] LABS: Polychromasia Present
[2020-04-24] MEDS ORDERED: IBUPROFEN IV 800 MG in SODIUM CHLORIDE 0.9% 250 ML IV ONE (20:00)
[2020-04-24] MEDS: LACTATED RINGERS 1,000 ML IV SCH (20:13)
[2020-04-24] MEDS: SENNOSIDES-DOCUSATE SODIUM 1 EACH TAB PO SCH (20:42)
[2020-04-24] MEDS: MAGNESIUM SULFATE-WATER PMX 20 GM in WATER FOR INJECTION 1 500ML.BAG IV SCH (20:56)
[2020-04-24] MEDS ORDERED: CARBOPROST TROMETHAMINE 250 MCG/ML 1 ML AMP IM ONE (21:12)
[2020-04-25] MEDS: LACTATED RINGERS 1,000 ML IV SCH (01:52)
[2020-04-25] MEDS: MAGNESIUM SULFATE-WATER PMX 20 GM in WATER FOR INJECTION 1 500ML.BAG IV SCH (06:39)
[2020-04-25 07:09] LABS: Anisocytosis Slight; Basophils % (A) 0 %; Eosinophils % (A) 1 %; HCT 31.4 % (34.0-46.0); Hypochromasia Slight; Lymphocytes # (A) 1.6 k/uL (1.0-4.8); Lymphocytes % (A) 23 %; MCH 27.7 pg (25.0-35.0); MCHC 31.7 g/dL (31.0-37.0); MCV 87.4 fL (80.0-100.0); Mean Platelet Volume 8.8; Monocytes # (A) 0.3 k/uL (0-1.0); Monocytes % (A) 4 %; Neutrophils % (A) 71 %; Platelet Count 206 k/uL (150-450); RDW 19.7 % (11.5-15.5); WBC 7.1 k/uL (3.8-10.6)
--- NOTE | 2020-04-25 07:37 | P.PNOBGPC ---
Subjective - Subjective Principal diagnosis: POD 1 LTCS, twin , preeclampsia Interval history: Patient did well overnight. She remains in bed on magnesium infusion. Rocha is draining clear fluid. She states her pain is well-controlled. She is tolerating clear liquids. Patient reports: Reports appetite normal (Rocha remains), Reports pain well controlled [place]: doing well (In the special care nursery secondary to gestational age) Objective - Vital Signs Latest vital signs: Vital Signs Temp Pulse Resp BP Pulse Ox 04/25/20 06:42 77 15 131/83 99 04/25/20 06:00 97 16 146/76 97 04/25/20 04:58 96.2 F L 84 16 140/87 96 04/25/20 04:00 82 16 134/68 99 04/25/20 03:00 78 16 145/74 96 04/25/20 01:58 81 16 137/85 98 04/25/20 01:00 77 16 158/70 98 04/24/20 23:57 77 17 132/78 99 04/24/20 23:00 70 16 158/71 99 04/24/20 22:21 73 16 150/87 98 04/24/20 22:00 79 17 155/90 04/24/20 21:52 157/86 04/24/20 21:45 69 15 166/93 97 04/24/20 21:37 15 164/91 97 04/24/20 21:24 75 15 154/86 99 04/24/20 21:03 74 15 151/79 97 04/24/20 21:00 16 04/24/20 20:51 16 144/74 97 04/24/20 20:45 16 04/24/20 20:38 74 16 152/90 96 04/24/20 20:26 16 04/24/20 20:22 69 16 147/88 99 04/24/20 20:07 72 16 144/78 99 04/24/20 19:54 76 16 134/79 100 04/24/20 19:39 75 16 131/75 99 04/24/20 19:24 96.8 F L 85 16 122/67 04/24/20 18:01 98.1 F 79 16 163/82 99 04/24/20 17:01 98.1 F 79 16 163/82 99 Intake and Output 04/24/20 04/25/20 04/25/20 22:59 06:59 14:59 Intake Total 100 485.833 Output Total 3180 1590 Balance -3080 -1104.167 Intake: IV 100 Intake, IV Titration 485.833 Amount Magnesium Sulfate-Water 485.833 Pmx 20 gm In Water For Injection 1 500ml.bag @ 2 GM/HR 50 mls/hr IV .Q10H STEFAN Rx#:[id number] Output: Urine 2000 1590 Estimated Blood Loss 1180 Other: Voiding Method Indwelling Catheter Weight 117.027 kg - Exam Extremities: Present: normal, edema Abdomen: Present: normal appearance, soft Incision: Present: normal, dry Uterus: Present: normal, firm - Labs Labs: Abnormal Lab Results - Last 24 Hours (Table) 04/24/20 04/25/20 Range/Units 18:00 06:24 RBC 3.60 L (3.80-5.40) m/uL Hgb 10.5 L 10.0 L (11.4-16.0) gm/dL Hct 32.6 L 31.4 L (34.0-46.0) % RDW 19.8 H 19.7 H (11.5-15.5) % Assessment and Plan (1) 35 to 36 weeks gestation of Current Visit: Yes Status: Acute Code(s): EMJ1011 - SNOMED Code(s): 711917474 (2) Preeclampsia Current Visit: Yes Status: Acute Code(s): O14.90 - UNSPECIFIED PRE- ECLAMPSIA, UNSPECIFIED TRIMESTER SNOMED Code(s): 309890191 (3) GDM, class A1 Current Visit: Yes Status: Acute Code(s): O24.410 - GESTATIONAL DIABETES MELLITUS IN , DIET CONTROLLED SNOMED Code(s): 94181998 (4) Twin Current Visit: Yes Status: Acute Code(s): O30.009 - TWIN , UNSP NUM PLCNTA & AMNIO SACS, UNSP TRIMESTER SNOMED Code(s): 35023587 Plan: This 29-year-old 012 status post primary for twin gestation is doing well this morning. She remained on magnesium infusion for preeclampsia. We'll monitor blood pressures today and plan on starting by mouth labetalol. Awaiting morning CBC.
[2020-04-25] MEDS: PRENATAL VIT-IRON-FOLIC ACID 1 EACH CAP PO SCH (08:31)
[2020-04-25] MEDS: SENNOSIDES-DOCUSATE SODIUM 1 EACH TAB PO SCH ×2 (08:31→20:34)
[2020-04-25] MEDS: ACETAMINOPHEN TAB 325 MG TAB PO PRN (08:31)
[2020-04-25] MEDS: FERROUS SULFATE 325 MG TAB PO SCH (08:32)
[2020-04-25] MEDS: SERTRALINE 100 MG TAB PO SCH (08:32)
[2020-04-25] MEDS: LABETALOL 100 MG TAB PO SCH ×2 (08:40→20:34)
--- NOTE | 2020-04-25 08:52 | P.PN ---
Progress Note - Text Progress Note Date: 04/25/20 (278) Anesthesia Postop day 1 Subjective: Status Post section with Duramorph. Patient seen and examined. Doing well without complaint. VAS 0. No nausea or vomiting. Mild pruritus tolerable.. Afebrile. Gross lower extremity strength intact. Spinal site intact without induration. Without apparent anesthetic complications. Objective: Vital signs reviewed Heart: Regular Rate Lungs: Good chest excursion Abdomen: Appears nondistended Assessment: Status post with Duramorph postop day 1 Plan: Continue current care with your medical management.
[2020-04-25] MEDS: IBUPROFEN 600 MG TAB PO PRN ×2 (13:40→20:33)
[2020-04-26] MEDS: ACETAMINOPHEN TAB 325 MG TAB PO PRN ×3 (01:18→19:53)
[2020-04-26] MEDS: IBUPROFEN 600 MG TAB PO PRN ×3 (08:37→23:27)
[2020-04-26] MEDS: SENNOSIDES-DOCUSATE SODIUM 1 EACH TAB PO SCH ×2 (08:38→20:22)
[2020-04-26] MEDS: LABETALOL 100 MG TAB PO SCH ×2 (08:49→21:04)
[2020-04-27] MEDS: FERROUS SULFATE 325 MG TAB PO SCH ×2 (00:06→08:20)
[2020-04-27] MEDS: SERTRALINE 100 MG TAB PO SCH ×2 (00:06→08:20)
[2020-04-27] MEDS: PRENATAL VIT-IRON-FOLIC ACID 1 EACH CAP PO SCH ×2 (00:06→08:20)
[2020-04-27] MEDS: ACETAMINOPHEN TAB 325 MG TAB PO PRN ×2 (02:47→23:54)
[2020-04-27] MEDS: IBUPROFEN 600 MG TAB PO PRN ×3 (06:52→19:21)
[2020-04-27] MEDS: LABETALOL 100 MG TAB PO SCH ×2 (08:20→20:53)
[2020-04-27] MEDS: SENNOSIDES-DOCUSATE SODIUM 1 EACH TAB PO SCH ×2 (08:53→19:22)
--- NOTE | 2020-04-27 10:52 | P.DS ---
Providers Date of admission: 04/24/20 17:35 Expected date of discharge: 04/27/20 Attending physician: Tori Veras Primary care physician: Stated None - Discharge Diagnosis(es) (1) Breech presentation Current Visit: Yes Status: Acute (2) 35 to 36 weeks gestation of Current Visit: Yes Status: Acute (3) GDM, class A1 Current Visit: Yes Status: Acute (4) Preeclampsia Current Visit: Yes Status: Acute (5) Twin Current Visit: Yes Status: Acute Hospital Course: This is a 29-year-old 3 now para 2031 who is admitted at 35-6/7 weeks' gestation with worsening hypertension and preeclampsia. She was a twin gestation with known breech breech presentation. Please see the admission history and physical for details. Following admission she went to the operating room she underwent a primary low transverse section. Findings at the time of surgery were significant for male infant weighing 5 lbs. 11 oz. with Apgars of 9 at 1 minute and 9 at 5 minutes and a female weighing 5 lbs. 2 oz. with Apgars of 8 at 1 minute and 9 at 5 minutes. Both were in the breech presentation. Please see the operative report for details. The patient was on magnesium sulfate seizure prophylaxis for 24 hours postdelivery. Her blood pressures ranged from the 130s to 150s over 80s to 90s throughout her postoperative course. The magnesium sulfate was discontinued at 24 hours and she was maintained on labetalol 100 mg twice a day. By postoperative day #2 she was ambulating and voiding without difficulty. She had no other significant signs or symptoms of preeclampsia's specifically no headaches or visual changes. Her incision was well healing. By postoperative day #3 she continued to do well. Her blood pressures were mainly in the 140s to 150s over 80s. Her lochia was minimal. She has 1+ lower extremity edema which is improved since delivery. Infants are doing well in the nursery with anticipated issues. She is decided to breast-feed. She was discharged home on postoperative day #3 with routine instructions for care and follow-up however specific attention to signs and symptoms of preeclampsia. She will continue her labetalol 100 mg twice a day and return to the office for blood pressure check in 1 week. Plan - Discharge Summary New Discharge Prescriptions: New Ibuprofen [Motrin] 600 mg PO Q6HR PRN tab PRN Reason: Mild Pain Or Fever >= 100.5 Labetalol [Trandate] 100 mg PO BID tab Acetaminophen Tab [Tylenol] 650 mg PO Q4HR PRN tab PRN Reason: Mild Pain Or Fever >= 100.5 Continue Sertraline HCl [Zoloft] 100 mg PO DAILY Discontinued Aspirin [Adult Low Dose Aspirin EC] 81 mg PO DAILY Labetalol HCl 100 mg PO TID No Action Pnv No.95/Ferrous Fum/Folic AC [ Multivitamin Tablet] 1 tab PO DAILY Ferrous Sulfate [Iron] 325 mg PO DAILY Discharge Medication List Pnv No.95/Ferrous Fum/Folic AC [ Multivitamin Tablet] 1 tab PO DAILY 06/14/18 [History] Sertraline HCl [Zoloft] 100 mg PO DAILY 03/12/20 [History] Ferrous Sulfate [Iron] 325 mg PO DAILY 04/23/20 [History] Acetaminophen Tab [Tylenol] 650 mg PO Q4HR PRN tab 04/27/20 [Rx] Ibuprofen [Motrin] 600 mg PO Q6HR PRN tab 04/27/20 [Rx] Labetalol [Trandate] 100 mg PO BID tab 04/27/20 [Rx] Follow up Appointment(s)/Referral(s): Tori Veras DO [Doctor of Osteopathic Medicine] - 1 Week (Blood pressure check) Activity/Diet/Wound Care/Special Instructions: Follow-up in 2 weeks after surgery in the office. Call the office with any concerning signs or symptoms including fever greater than 101, severe abdominal pain, heavy vaginal bleeding, signs of wound infection, increased swelling or redness of the lower extremities, headaches, visual changes or signs of depression. No driving for 2 weeks after surgery. No heavy lifting or vigorous activity until reevaluated in the office. No intercourse for 6 weeks after delivery. May use [id number] ibuprofen and/or Tylenol extra strength as needed for pain. Notify the office with home blood pressures systolics greater than 180 or diastolics greater than 100 Discharge Disposition: HOME SELF-CARE
[2020-04-28] MEDS: IBUPROFEN 600 MG TAB PO PRN ×2 (03:22→09:54)
[2020-04-28] MEDS: ACETAMINOPHEN TAB 325 MG TAB PO PRN (06:20)
[2020-04-28] MEDS: SERTRALINE 100 MG TAB PO SCH (08:43)
[2020-04-28] MEDS: PRENATAL VIT-IRON-FOLIC ACID 1 EACH CAP PO SCH (08:43)
[2020-04-28] MEDS: LABETALOL 100 MG TAB PO SCH (08:43)
[2020-04-28] MEDS: FERROUS SULFATE 325 MG TAB PO SCH (08:43)
[2020-04-28] MEDS: SENNOSIDES-DOCUSATE SODIUM 1 EACH TAB PO SCH (08:47)
[2020-04-28 09:08] VITALS: BP 133/71; PULSE 88; RESP 16; TEMP 98
== END 2020-04-28 10:25 | disposition home or self-care (01) | DRG 788 ==
LOC: FBPOP 16:25 → 4FBP 17:35
PROVIDERS: ADMIT Obstetrics & Gynecology Obstetrics; ATTEND Obstetrics & Gynecology Obstetrics
PROC: 10D00Z1 Extraction of Products of Conception, Low, Open Approach (ICD-10-PCS; principal; 2020-04-24 18:30)
DX: O32.1XX1 Maternal care for breech presentation, fetus 1 (principal); O32.1XX2 Maternal care for breech presentation, fetus 2; Z37.2 Twins, both liveborn; O24.420 Gestational diabetes mellitus in childbirth, diet controlled; O14.94 Unspecified pre-eclampsia, complicating childbirth; O30.043 Twin pregnancy, dichorionic/diamniotic, third trimester; Z3A.35 35 weeks gestation of pregnancy; O99.73 Diseases of the skin and subcutaneous tissue complicating the puerperium; L29.9 Pruritus, unspecified; Z79.82 Long term (current) use of aspirin; Z79.899 Other long term (current) drug therapy; Z90.49 Acquired absence of other specified parts of digestive tract; Z98.890 Other specified postprocedural states; Z82.49 Family history of ischemic heart disease and other diseases of the circulatory system; Z83.49 Family history of other endocrine, nutritional and metabolic diseases
CPT/HCPCS: 59025; 85025; 85610; 85730; 86850; 86900; 86901; 88307